=== PATIENT | male | born 1990 | race Caucasian/White ===

== ENCOUNTER 2022-10-10 08:38 | Outpatient (CLI) | payer OTHER ==
[~2022-10-10] VITALS: Ht 190.5 cm; Wt 145.1 kg
[2022-10-10] MEDS ORDERED: albuterol 2.5 MG/3 ML nebule NEB ONE (09:23)
== END 2022-10-10 23:59 | disposition home or self-care (01) ==
LOC: RT 08:38
PROVIDERS: ATTEND Chiropractor
DX: J06.9 Acute upper respiratory infection, unspecified (principal); R06.02 Shortness of breath
CPT/HCPCS: 71046; 94060; 94760